=== PATIENT | female | born 1980 | race Caucasian/White ===

== ENCOUNTER 2021-10-17 17:37 | Emergency (ER) | payer MEDICAID ==
[~2021-10-17] VITALS: Ht 165.1 cm; Wt 108.9 kg
[2021-10-17 17:50] VITALS: BP_SYST 139
--- NOTE | 2021-10-17 19:25 | NUR ---
Pt presents to the ER bib bls from home. CC Chest pain sharp intermittant pain scale 7/10 pt states has been feeling distention on the right side of her neck also noted tremors to right hand and pain in right calf. Pt also notes right eye flutters intermittantly. Pt has had 2 episodes of seizure in past 90 days with an evaluation at [facility] on august 31, CT scan noted bleeding at that time. Pt notes began Keppra RX on September 01 and began feeling heat and chest pain around 0400 and around lunch hour since beginning Keppra. No temp. noted at this time. skin intact, aaox4, pt is resting with even and unlabored breathing.
--- NOTE | 2021-10-17 19:31 | NUR ---
Patient to ER bed josue 2 to gown for evaluation. Side rails up. Report given to Mirtha.
[2021-10-17 20:33] LABS: BASOPHILS % (AUTO) 0.2 % (0.0-2.0); EOSINOPHILS # (AUTO) 0.1 K/uL (0.0-0.4); EOSINOPHILS % (AUTO) 0.6 % (0.0-4.0); HEMATOCRIT 43.3 % (36-48); HEMOGLOBIN 14.8 g/dL (12.0-16.0); LYMPHOCYTES # (AUTO) 2.9 K/uL (1.0-5.5); LYMPHOCYTES % (AUTO) 21.9 % (20.5-51.5); MEAN CORPUSCULAR HEMOGLOBIN 31 pg (27-31); MEAN CORPUSCULAR HGB CONC 34 % (32-36); MEAN CORPUSCULAR VOLUME 91 fL (79.0-98.0); MONOCYTES # (AUTO) 0.8 K/uL (0.0-1.0); MONOCYTES % (AUTO) 6.2 % (1.7-9.3); NEUTROPHILS # (AUTO) 9.3 K/uL (1.8-7.7); NEUTROPHILS % (AUTO) 71.1 % (40.0-70.0); PLATELET COUNT (AUTO) 178 K/uL (130-430); RED BLOOD CELL COUNT(AUTO) 4.77 MIL/uL (4.2-6.2); RED CELL DISTRIBUTION WIDTH 13.3 % (9.0-15.0)
[2021-10-17 20:49] LABS: ANION GAP 5 (5-15); CALCIUM 8.4 mg/dL (8.4-11.0); CHLORIDE 101 mmol/L (98-107); CREATININE 0.65 mg/dL (0.55-1.30); GLUCOSE 103 mg/dL (70-99); POTASSIUM 3.9 mmol/L (3.5-5.1); SODIUM SERUM 137 mmol/L (136-145); UREA NITROGEN, BLOOD 15 mg/dL (8-21)
[2021-10-17 20:50] LABS: GFR AFRICAN AMERICAN 131 mL/min (>90)
[2021-10-17 20:58] LABS: ALANINE AMINOTRANSFERASE 26 U/L (12-78); ALBUMIN 3.4 g/dL (3.4-4.8); ASPARTATE AMINOTRANSFERASE 17 U/L (10-37); PHOSPHORUS 3.2 mg/dL (2.7-4.5); TOTAL BILIRUBIN 0.3 mg/dL (0.0-1.0)
--- NOTE | 2021-10-17 21:12 | NUR ---
REPORT GIVEM TO DEMETRIUS CHEW
[2021-10-17 21:29] VITALS: BP_SYST 138
--- NOTE | 2021-10-17 21:37 | NUR ---
DC PT HOME AAOX4, NO SOB NOTED AND NOT IN ANY DISTRESS. DC INSTRUCTION WERE GIVEN TO PT ALSO INSTRUCTED TO MAKE F/U WITH HER PCP. SHE VERBALIZED UNDERSTANDING. PATINET SISTER JAX CALLED FOR PATIENT PICKED UP. PT AMBULATED TO WAITING ROOM WITH STEADY GAIT.
== END 2021-10-17 21:29 | disposition home or self-care (01) ==
LOC: SED 17:37
DX: R07.89 Other chest pain (principal); R11.0 Nausea; R06.02 Shortness of breath; Z79.899 Other long term (current) drug therapy
CPT/HCPCS: 36415; 71045; 80053; 83735; 84100; 84484; 85025; 93005; 99285